=== PATIENT | female | born 1985 | race Caucasian/White ===

== ENCOUNTER 2018-05-05 21:11 | Inpatient (IN) | payer OTHER ==
[~2018-05-05] VITALS: Ht 160 cm; Wt 73.9 kg
[~2018-05-05 21:11] MED LIST: Anaprox Ds 550mg TAB PO; CODE1TAB37 PO; MACROBID 100 M100 MG PO; PRENATABS RX TA1 TAB; ZANTAC300 MG PO; ZOFRAN4 MG PO
[2018-05-05] MEDS ORDERED: CLARITIN10 M1 PO (22:06)
[2018-05-06] MEDS ORDERED: KEFLEX500 MG PO (15:05)
== END 2018-05-06 15:43 | DRG 782 ==
LOC: LDR 21:11 → OB/GYN 05-06 13:24
PROC: B44HZZZ Ultrasonography of Bilateral Lower Extremity Arteries (ICD-10-PCS; principal; 2018-05-05)
PROC: 4A1HXCZ Monitoring of Products of Conception, Cardiac Rate, External Approach (ICD-10-PCS; 2018-05-05)
DX: O22.32 Deep phlebothrombosis in pregnancy, second trimester (principal); I82.4Y2 Acute embolism and thrombosis of unspecified deep veins of left proximal lower extremity; O47.02 False labor before 37 completed weeks of gestation, second trimester

== ENCOUNTER 2018-07-18 14:45 | Inpatient (IN) | payer OTHER ==
[~2018-07-18] VITALS: Ht 160 cm; Wt 74.8 kg
[~2018-07-18 14:45] MED LIST changes: +CLARITIN10 M1 PO; +KEFLEX500 MG PO
[2018-07-31] MEDS ORDERED: IRON325 MG PO (08:09)
== END 2018-08-02 14:32 | DRG 807 ==
LOC: LDR 07-31 07:46 → OB/GYN 07-31 07:46 → LDR 07-31 08:54 → OB/GYN 07-31 19:31 → LDR 08-10 14:45
PROC: 10E0XZZ Delivery of Products of Conception, External Approach (ICD-10-PCS; principal; 2018-07-31)
PROC: 0KQM0ZZ Repair Perineum Muscle, Open Approach (ICD-10-PCS; 2018-07-31)
PROC: 0W8NXZZ Division of Female Perineum, External Approach (ICD-10-PCS; 2018-07-31)
PROC: 10907ZC Drainage of Amniotic Fluid, Therapeutic from Products of Conception, Via Natural or Artificial Opening (ICD-10-PCS; 2018-07-31)
PROC: 4A1HXCZ Monitoring of Products of Conception, Cardiac Rate, External Approach (ICD-10-PCS; 2018-07-31)
DX: O70.1 Second degree perineal laceration during delivery (principal); Z37.0 Single live birth; Z3A.37 37 weeks gestation of pregnancy; Z22.330 Carrier of Group B streptococcus